=== PATIENT | female | born 2000 | race Caucasian/White ===

== ENCOUNTER 2025-01-22 14:20 | Emergency (ER) | payer OTHER ==
[~2025-01-22] VITALS: Ht 162.6 cm; Wt 70.3 kg
[2025-01-22 14:37] VITALS: BP 109/62; TEMP 98.3; O2SAT 98
[2025-01-22] MEDS ORDERED: [UNRECOGNIZED DRUG - CODE] TP (15:07)
[2025-01-22] MEDS ORDERED: MINE1OIL PO (15:07)
[2025-01-22] MEDS ORDERED: POLY17PO4 PO (15:07)
== END 2025-01-22 15:15 | disposition home or self-care (01) ==
LOC: ER 14:25
DX: K59.00 Constipation, unspecified (principal); K60.2 Anal fissure, unspecified; F17.200 Nicotine dependence, unspecified, uncomplicated